=== PATIENT | female | born 1995 | race Caucasian/White ===

== ENCOUNTER 2022-11-04 19:04 | Emergency (ER) | payer OTHER ==
[~2022-11-04] VITALS: Ht 165.1 cm; Wt 51.7 kg
[2022-11-04 19:27] VITALS: BP 131/77
--- NOTE | 2022-11-04 19:35 | NUR ---
PT AMBULATED TO BED #8
[2022-11-04] MEDS ORDERED: LIDOCAINE MPF 1% 10 MG/ML VIAL INJ ONE (19:45)
--- NOTE | 2022-11-04 19:47 | NUR ---
PA AT BEDSIDE
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
--- NOTE | 2022-11-04 20:01 | NUR ---
LAB AT BEDSIDE
--- NOTE | 2022-11-04 20:13 | NUR ---
LINDA GRAHAM AT BEDSIDE LAC REPAIR LIP
[2022-11-04 20:17] LABS: BASOPHILS % (AUTO) 0.5 % (0.0-2.0); EOSINOPHILS % (AUTO) 0.1 % (0.0-4.0); HEMATOCRIT 38.3 % (36-48); HEMOGLOBIN 13.3 g/dL (12.0-16.0); LYMPHOCYTES # (AUTO) 2.1 K/uL (2.5-16.5); LYMPHOCYTES % (AUTO) 23.3 % (20.5-51.1); MEAN CORPUSCULAR HEMOGLOBIN 31 pg (27-31); MEAN CORPUSCULAR HGB CONC 35 g/dL (33-37); MEAN CORPUSCULAR VOLUME 88.3 fL (80-94); MONOCYTES # (AUTO) 0.4 K/uL (0.8-1.0); MONOCYTES % (AUTO) 4.8 % (1.7-9.3); NEUTROPHILS # (AUTO) 6.5 K/uL (1.8-7.7); NEUTROPHILS % (AUTO) 71.3 % (42.2-75.2); PLATELET COUNT (AUTO) 233 K/uL (140-450); RED BLOOD CELL COUNT(AUTO) 4.34 MIL/uL (4.20-5.40); RED CELL DISTRIBUTION WIDTH 13.2 % (11.6-13.7); WHITE BLOOD COUNT (AUTO) 9.1 K/uL (4.8-10.8)
[2022-11-04 20:33] LABS: ALBUMIN 4.3 g/dL (3.4-5.0); ANION GAP 17.3 (8-16); CARBON DIOXIDE 23.3 mmol/L (21-32); CREATININE 0.9 mg/dL (0.6-1.3); POTASSIUM 3.6 mmol/L (3.5-5.1); TOTAL BILIRUBIN 0.5 mg/dL (0.0-1.0)
--- NOTE | 2022-11-04 20:36 | NUR ---
RADIOLOGY AT BEDSIDE
--- NOTE | 2022-11-04 22:28 | NUR ---
Patient discharged with v/s stable. Written and verbal after care instructions given and explained. Patient verbalized understanding. Ambulatory with steady gait. All questions addressed prior to discharge. Advised to follow up with PMD.
== END 2022-11-04 22:28 | disposition home or self-care (01) ==
LOC: MED 19:04
DX: S01.511A Laceration without foreign body of lip, initial encounter (principal); R55 Syncope and collapse; X58.XXXA Exposure to other specified factors, initial encounter; Y93.89 Activity, other specified; Y92.89 Other specified places as the place of occurrence of the external cause; Y99.8 Other external cause status
CPT/HCPCS: 36415; 40650; 71045; 80053; 84484; 85025; 85379; 99285; J2001; Q0092